=== PATIENT | male | born 1975 | race American Indian/Alaskan Native ===

== ENCOUNTER 2017-12-29 09:43 | Emergency (ER) | payer BC, OTHER ==
[2017-12-29 09:43] VITALS: BMI 35.1
[2017-12-29 09:53] VITALS: BP 152/98; PULSE 83; RESP 16; TEMP 99; O2SAT 99
[2017-12-29] MEDS ORDERED: cefTRIAXone (Rocephin) 250 mg Inj IM STA (09:59)
--- NOTE | 2017-12-29 10:05 | ED PDOC ---
Arrival/HPI - General Chief Complaint: Male Genitourinary Time Seen by Provider: 12/29/17 09:53 Historian: Patient - History of Present Illness Narrative History of Present Illness (Text): 12/29/17 10:02 42yr old male presents today with 1 week history of Penile discharge. pt states sexual partner was diagnosed with Trichomonas yesterday. Patient denies abdominal pain. Denies nausea or vomiting. Denies fevers or chills. Patient denies dizziness or weakness. Patient denies testicular pain or swelling. Patient states he's noticed a yellowish discharge from the penis. Time/Duration: 1 week Symptom Onset: Sudden Quality: Other (no pain) Past Medical History - Provider Review Nursing Documentation Reviewed: Yes - Travel History Have you recently traveled outside [place] w/in the past 3 mons?: No - Tetanus Immunization Tetanus Immunization: Unknown - Cardiac Hx Pacemaker: No - Neurological Hx Paralysis: No - Hematological/Oncological Hx Blood Transfusions: No - Musculoskeletal/Rheumatological Hx Musculoskeletal Disorders: No - Psychiatric Hx Emotional Abuse: No Hx Physical Abuse: No Hx Substance Use: No - Anesthesia Hx Anesthesia Reactions: No Hx Malignant Hyperthermia: No - Suicidal Assessment Feels Threatened In Home Enviroment: No Family/Social History - Physician Review Nursing Documentation Reviewed: Yes Family/Social History: Unknown Family HX Smoking Status: Heavy Smoker > 10 Cigarettes Daily Hx Alcohol Use: Yes (OCCASIONAL) Hx Substance Use: No Allergies/Home Meds Allergies/Adverse Reactions: Allergies No Known Allergies Allergy (Unverified 12/29/17 09:44) Review of Systems - Review of Systems Constitutional: absent: Fatigue, Fevers Respiratory: absent: SOB, Cough Cardiovascular: absent: Chest Pain, Palpitations Gastrointestinal: absent: Abdominal Pain, Nausea, Vomiting Genitourinary Male: Other (penile discharge). absent: Dysuria, Frequency, Hematuria Musculoskeletal: absent: Arthralgias, Back Pain, Neck Pain Skin: absent: Rash, Pruritis Neurological: absent: Headache, Dizziness Psychiatric: absent: Anxiety, Depression Physical Exam Vital Signs Reviewed: Yes Vital Signs Temp Pulse Resp BP Pulse Ox 12/29/17 09:46 99.0 F 83 16 152/98 H 99 12/29/17 09:43 99 F 83 16 152/98 H 99 Temperature: Afebrile Blood Pressure: Hypertensive Pulse: Regular Respiratory Rate: Normal Appearance: Positive for: Well-Appearing, Non-Toxic, Comfortable Pain Distress: None Mental Status: Positive for: Alert and Oriented X 3 - Systems Exam Head: Present: Atraumatic Neck: Present: Normal Range of Motion Respiratory/Chest: Present: Clear to Auscultation, Good Air Exchange. No: Respiratory Distress, Accessory Muscle Use Cardiovascular: Present: Regular Rate and Rhythm, Normal S1, S2. No: Murmurs Abdomen: No: Tenderness, Distention, Peritoneal Signs, Rebound, Guarding Genitourinary Male: Present: Normal External Genitalia, Circumcised Penis, Other (chaparoned by Leandro PAZ RN. ). No: Lesions, Penile Discharge, Testicle Tenderness, Penile Swelling, Masses, Erythema, Hernias, Testicle Swelling Medical Decision Making ED Course and Treatment: 12/29/17 10:06 Patient is nontoxic well-appearing in no distress with stable vital signs Ceftriaxone 250 mg IM Zithromax 1 g p.o. given flagyl given PO Gonorrhea and Chlamydia cultures are pending. Advised patient to refrain from sex for 10 days followup with the primary care physician within the next 2 days or return if symptoms worsen persist or if new symptoms develop. advised patient to f/u with PMD regarding elevated blood pressure. Patient verbalizes understanding of discharge instructions and need for immediate followup. all aspects of this case were discussed the attending of record. Impression: penile discharge Follow up primary care physician within the next 2 days Please follow up regarding your elevated blood pressure. Return if symptoms worsen persist or if new symptoms develop. - Medication Orders Current Medication Orders: Discontinued Medications Azithromycin (Zithromax) 1,000 mg PO STAT STA PRN Reason: Protocol Stop: 12/29/17 10:00 Last Admin: 12/29/17 10:16 Dose: 1,000 mg Ceftriaxone Sodium (Rocephin) 250 mg IM STAT STA PRN Reason: Protocol Stop: 12/29/17 10:00 Last Admin: 12/29/17 10:15 Dose: 250 mg IM Administration Charges Document 12/29/17 10:15 SRE (Rec: 12/29/17 10:16 SRE [id number]) Injection Site MAR Injection Site Left Gluteus Luis Charges for Administration # of IM Administrations 1 Metronidazole (Flagyl) 2,000 mg PO STAT STA PRN Reason: Protocol Stop: 12/29/17 10:00 Last Admin: 03/31/18 10:16 Dose: 2,000 mg Disposition/Present on Arrival - Present on Arrival Any Indicators Present on Arrival: No History of DVT/PE: No History of Uncontrolled Diabetes: No Urinary Catheter: No History of Decub. Ulcer: No History Surgical Site Infection Following: None - Disposition Have Diagnosis and Disposition been Completed?: Yes Diagnosis: Penile discharge, STD exposure Disposition: HOME/ ROUTINE Disposition Time: 10:00 Patient Plan: Discharge Patient Problems: Current Active Problems Problem Status Onset Penile discharge Acute STD exposure Acute Condition: GOOD Discharge Instructions (ExitCare): Screening for Sexually Transmitted Infections, Trichomoniasis (DC) Additional Instructions: Follow up with the primary care physician within the next 2 days return if symptoms worsen,persist or if new symptoms develop. Referrals: Tona Kunz MD [Staff Provider] - Follow up with primary [facility] at [facility] [place] [Outside] - Follow up with primary Forms: [employer] (Romanian), WORK NOTE
== END 2017-12-29 10:42 | disposition home or self-care (01) ==
LOC: ED 09:43
DX: Z20.2 Contact with and (suspected) exposure to infections with a predominantly sexual mode of transmission (principal); R36.9 Urethral discharge, unspecified; F17.210 Nicotine dependence, cigarettes, uncomplicated
CPT/HCPCS: 87491; 87591; 96372; 99283; J0696